=== PATIENT | male | born 1965 | race Caucasian/White ===

== ENCOUNTER 2020-01-28 11:22 | Emergency (ER) | payer OTHER ==
[~2020-01-28] VITALS: Ht 172.7 cm; Wt 83.9 kg
[~2020-01-28 11:22] MED LIST: ALLOPURINOL100 MG PO; CIPRO500 MG PO; CLEOCIN HCL150 MG PO; COLACE100 MG PO; COLCHICINE0.6 M2 PO; IBUPROFEN 30 M800 MG PO; NORCO 325 MG-51 TAB PO; OMEPRAZOLE D/R20 MG PO; PERCOCET 325 MG1 TA5 PO; RESTORIL30 MG PO; ROBAXIN; ROBAXIN-750750 MG PO; VICODIN ES 7501 TA1 PO
[2020-01-28] MEDS ORDERED: CIPRO500 MG PO (11:51)
== END 2020-01-28 13:00 | disposition home or self-care (01) ==
LOC: ED 11:22
DX: K61.1 Rectal abscess (principal); Z88.8 Allergy status to other drugs, medicaments and biological substances; Z79.899 Other long term (current) drug therapy

== ENCOUNTER → 2020-04-15 | Outpatient (CLI) | payer OTHER | END | disposition home or self-care (01) | LOC: RAD 15:39 | PROVIDERS: ATTEND Family Medicine | DX: M25.572 Pain in left ankle and joints of left foot (principal) ==